=== PATIENT | male | born 1970 | race Caucasian/White ===

== ENCOUNTER 2022-03-05 07:07 | Day surgery (SDC) | payer MEDICARE, MEDICAID ==
[2022-03-04 10:32] VITALS: BMI 21.6
[2022-03-05] MEDS ORDERED: PROPOFOL 200 MG/20 ML VIAL ONE (09:05)
== END 2022-03-05 10:50 ==
LOC: SDC 07:07
PROVIDERS: ATTEND Internal Medicine Gastroenterology
PROC: 0DBK8ZX Excision of Ascending Colon, Via Natural or Artificial Opening Endoscopic, Diagnostic (ICD-10-PCS; principal; 2022-03-05)
DX: Z12.11 Encounter for screening for malignant neoplasm of colon (principal); D12.2 Benign neoplasm of ascending colon; K63.89 Other specified diseases of intestine; E78.5 Hyperlipidemia, unspecified; M81.0 Age-related osteoporosis without current pathological fracture; G80.0 Spastic quadriplegic cerebral palsy; G40.909 Epilepsy, unspecified, not intractable, without status epilepticus; F79 Unspecified intellectual disabilities; E03.9 Hypothyroidism, unspecified; N40.0 Benign prostatic hyperplasia without lower urinary tract symptoms; Z79.82 Long term (current) use of aspirin; Z79.899 Other long term (current) drug therapy; Z93.1 Gastrostomy status; Z88.8 Allergy status to other drugs, medicaments and biological substances
CPT/HCPCS: 88305; J2704